=== PATIENT | female | born 1955 | race Caucasian/White ===

== ENCOUNTER 2018-04-27 01:55 | Observation (INO) | payer MEDICARE ==
[2018-04-27] MEDS ORDERED: MORPHINE SULFATE 4 MG/ML SYRINGE IVP STA (03:06)
[2018-04-27] MEDS ORDERED: ONDANSETRON 4 MG/2 ML VIAL IVP PRN (04:07)
[2018-04-27] MEDS ORDERED: NALOXONE 0.4 MG/ML 1 ML VIAL IV PRN (04:07)
[2018-04-27] MEDS ORDERED: HYDROmorphone 1 MG/ML 1 ML SYRINGE IVP PRN (04:07)
--- NOTE | 2018-04-27 04:07 | ED ---
General Adult HPI - General Chief complaint: Extremity Injury, Lower Stated complaint: LEG PAIN Time Seen by Provider: 04/27/18 02:37 Source: patient, family, RN notes reviewed Mode of arrival: wheelchair Limitations: physical limitation - History of Present Illness Initial comments: 62-year-old female presents to the emergency department for a chief complaint of bilateral lower extremity pain for the past few years. Patient states pain has been increasing in the past few weeks. Denies any recent injuries. Patient states she is now unable to walk. Patient states it is a sharp pain in both extremities but worse in the left leg. Patient says she also has low back pain. Patient has a history of fibromyalgia and osteoarthritis. Patient is currently in pain management with Dr. Sims. Patient states she has had multiple MRIs in the past of her back. She states she is aware she has nerve damage but is not exactly sure where. Patient denies any saddle anesthesia. Patient denies any bladder or bowel changes. Patient denies any history of IV drug abuse, chronic steroid use, or cancer. Patient has no other complaints at this time including shortness of breath, chest pain, abdominal pain, nausea or vomiting, headache, or visual changes. - Related Data Home Medications Medication Instructions Recorded Confirmed Cholecalciferol (Vitamin D3) 5,000 unit PO DAILY 04/27/18 04/27/18 [Vitamin D3] DULoxetine HCL [Cymbalta] 60 mg PO DAILY 04/27/18 04/27/18 Dicyclomine [Bentyl] 10 mg PO TID 04/27/18 04/27/18 HYDROcodone/APAP 10-325MG [[place] 10 - 325 mg PO TID 04/27/18 04/27/18 10-325] Mirabegron [Myrbetriq] 25 mg PO DAILY 04/27/18 04/27/18 Naproxen 500 mg PO BID 04/27/18 04/27/18 Omeprazole 20 mg PO BID 04/27/18 04/27/18 Allergies Allergy/AdvReac Type Severity Reaction Status Date / Time No Known Allergies Allergy Verified 04/27/18 02:18 Review of Systems ROS Statement: Those systems with pertinent positive or pertinent negative responses have been documented in the HPI. ROS Other: All systems not noted in ROS Statement are negative. Past Medical History Past Medical History: Fibromyalgia, Osteoarthritis (OA) Additional Past Medical History / Comment(s): chronic pain, History of Any Multi-Drug Resistant Organisms: None Reported Past Surgical History: Cholecystectomy, Orthopedic Surgery, Tubal Ligation Additional Past Surgical History / Comment(s): carpal tunnel bilat, right knee Past Psychological History: No Psychological Hx Reported Smoking Status: Never smoker Past Alcohol Use History: Occasional Past Drug Use History: None Reported General Exam Limitations: physical limitation General appearance: alert, in no apparent distress Head exam: Present: atraumatic, normocephalic, normal inspection Eye exam: Present: normal appearance. Absent: scleral icterus, conjunctival injection ENT exam: Present: normal exam, mucous membranes moist Neck exam: Present: normal inspection, full ROM. Absent: tenderness, meningismus, lymphadenopathy Respiratory exam: Present: normal lung sounds bilaterally. Absent: respiratory distress, wheezes, rales, rhonchi, stridor Cardiovascular Exam: Present: regular rate, normal rhythm, normal heart sounds. Absent: systolic murmur, diastolic murmur, rubs, gallop, clicks GI/Abdominal exam: Present: soft, normal bowel sounds. Absent: distended, tenderness (No tenderness in the abdomen), guarding, rebound, rigid Rectal exam: Present: normal inspection, normal rectal tone Extremities exam: Present: normal capillary refill (Capillary refill less than 2 seconds in lower extremities bilaterally. PT and PT pulses 2+ in lower extremities bilaterally), other (Patellar reflexes 3+ in lower extremities bilaterally. Slightly hyperreflexive. Negative clonus.). Absent: pedal edema , joint swelling Back exam: Present: tenderness (Patient does have tenderness in the lumbar spine ). Absent: full ROM (Patient unable to flex or extend the back. Patient able to stand but states she feels like her leg is going to give out and cannot take a step) Neurological exam: Present: alert, oriented X3, CN II-XII intact, other ( Sensation intact in lower extremities bilaterally.). Absent: normal gait, motor sensory deficit Psychiatric exam: Present: normal affect, normal mood Course Vital Signs 04/27/18 04/27/18 04/27/18 02:14 03:41 04:33 Temperature 98.2 F Pulse Rate 69 80 66 Respiratory 18 20 16 Rate Blood Pressure 132/79 159/75 125/64 O2 Sat by Pulse 99 99 98 Oximetry Medical Decision Making - Medical Decision Making 62-year-old female presents to the emergency department for a chief complaint of lower extremity pain times years. Pain exacerbated the past few months. Patient has had multiple MRIs in the past. She is currently being treated by Dr. Sims for pain management. Patient states unable to walk and will not take a step in the emergency department when standing because she is afraid her leg will give out. Patient states the pain is mostly in the left leg and it is a sharp pain. Patient does have sensation in lower extremities bilaterally. Patient is slightly hyperreflexic with patellar reflexes, negative clonus. Normal rectal tone. Denies saddle anesthesia or bladder or bowel changes. Discussed with patient possibility of admission for pain management which she agrees at this time. She states she cannot go home at this and at this point she is a concern for fall risk. Patient will be admitted for these reasons. Disposition Clinical Impression: Bilateral lower extremity pain, Chronic back pain Disposition: ADMITTED IP TO THIS [facility] Condition: Good Referrals: Jose Olson MD [Primary Care Provider] - 1-2 days Time of Disposition: 04:07
[2018-04-27 04:36] VITALS: RESP 16
[2018-04-27] MEDS: SODIUM CHLORIDE 0.9% 1,000 ML IV SCH ×2 (04:49→16:21)
[2018-04-27] MEDS: MORPHINE SULFATE 4 MG/ML SYRINGE IV PRN ×2 (07:19→15:32)
[2018-04-27] MEDS: NAPROXEN 250 MG TAB PO SCH ×2 (10:24→20:59)
[2018-04-27] MEDS: DULoxetine HCL 60 MG CAPSULE.DR PO SCH (10:28)
[2018-04-27] MEDS: DICYCLOMINE 10 MG CAP PO SCH ×3 (10:28→21:08)
[2018-04-27] MEDS: PANTOPRAZOLE 40 MG TABLET PO SCH ×2 (10:29→21:08)
[2018-04-27] MEDS: Mirabegron [Myrbetriq] 25 MG PO SCH (11:16)
--- NOTE | 2018-04-27 15:36 | P.CNNES ---
History of Present Illness Consult date: 04/27/18 Reason for Consult: Patient admitted with lower extremity weakness and pain. History of Present Illness: This patient is a 62-year-old right-handed white female who apparently over the last 2 weeks has been complaining of increased pain in her back as well as in both of her lower extremities. The patient states that the symptoms of weakness and pain have been progressively worsening to the point that this morning she could not walk. She was having sharp pain in both legs with more severe shooting pain into the left leg. Patient states that she follows in the pain management clinic with Dr. Sims and is undergone epidural injections every year for the last 2 years. She had her last epidural in November 2017. She states that the epidurals are not long lasting and usually short lived in their effectiveness in controlling her pain. Her new finding today has been weakness in both legs producing severe inability to stand or ambulate. She states she was also having pain when sitting on the commode today. For these reasons she did tell her she would like to come to the emergency room for evaluation. She was seen in the ER at [facility] today and was advised admission to the hospital with a consultation to pain management. Patient states that she has been using Narco and Cymbalta as primary medicines for management of her pain symptoms. She has a long-standing history of fibromyalgia dating back 20 years ago and has been tried on various other medications over the years. She is currently only on Cymbalta. The patient denies any bowel or bladder incontinence. She has no sensory loss in her lower extremities. She denies any chronic steroid use or IV drug use in the past. Patient does follow with Dr. Olson in the outpatient clinic and apparently did not seek any medical attention due to the more severe symptoms in the last 2 weeks. The patient was seen in the emergency room by physician pharmacy innovation assistant Brett Anders. She was found to have no evidence of saddle anesthesia or bowel or bladder changes. She had a normal rectal tone as per the physician pharmacy innovation assistant. No imaging studies were done but apparently the patient states her last MRI of her back was over a year ago. The patient states that she has great difficulty even standing now with assistance and has to rely on her or her walker to the standing position. Orthopedic spine surgery has been consulted and we are waiting their evaluation as well. We are recommending the patient should have an immediate urgent MRI of the lumbar spine done for further evaluation. Her neurological examination does reveal hyperreflexia in both lower extremities. There is no evidence of a sensory level. Her clinical history is suggesting acute lumbar disc disease and lumbar spinal stenosis. We have reviewed these findings today in detail with the patient. We will arrange for MRI of the lumbar spine to be done as soon as possible for further review. We will continue to follow her progress closely during this admission. Apparently she was taken off of pravastatin for 2 months to see if this was contributing to some of her leg pain. There is been no change according to the patient and her symptoms consistently remain unchanged despite having stopped the pravastatin 2 months ago. The patient is now admitted and neurology has been consulted for further evaluation and recommendations. Review of Systems Constitutional: Denies chills, Denies fever Eyes: denies blurred vision, denies pain Ears, nose, mouth and throat: Denies headache, Denies sore throat Cardiovascular: Denies chest pain, Denies shortness of breath Respiratory: Denies cough Gastrointestinal: Denies abdominal pain, Denies diarrhea, Denies nausea, Denies vomiting Genitourinary: Denies dysuria, Denies hematuria Musculoskeletal: Denies myalgias Integumentary: Denies pruritus, Denies rash Neurological: Reports gait dysfunction, Reports motor disturbance, Reports paresthesias, Reports spasticity, Reports tingling, Denies numbness, Denies weakness Psychiatric: Denies anxiety, Denies depression Endocrine: Denies fatigue, Denies weight change Past Medical History Past Medical History: Fibromyalgia, GERD/Reflux, Osteoarthritis (OA) Additional Past Medical History / Comment(s): Chronic back pain, chronic bilateral leg pain worse on L side (pt sees Dr. Sims for pain management), arthritis in back and multiple joints, overactive bladder. History of Any Multi-Drug Resistant Organisms: None Reported Past Surgical History: Cholecystectomy, Orthopedic Surgery, Tubal Ligation Additional Past Surgical History / Comment(s): carpal tunnel bilat, right knee arthroscopy, bilateral hip arthroscopy, R elbow tendon surgery, colonoscopy. Additional Past Anesthesia/Blood Transfusion Reaction / Comment(s): Pt states she woke during one of her surgeries. Smoking Status: Former smoker - Past Family History Father History Unknown: Yes Additional Family Medical History / Comment(s): Pt does not know father's health hx. Mother History Unknown: Yes Additional Family Medical History / Comment(s): Pt does not know mother's health hx. Medications and Allergies Home Medications Medication Instructions Recorded Confirmed Type Cholecalciferol (Vitamin D3) 5,000 unit PO DAILY 04/27/18 04/27/18 History [Vitamin D3] DULoxetine HCL [Cymbalta] 60 mg PO DAILY 04/27/18 04/27/18 History Dicyclomine [Bentyl] 10 mg PO TID 04/27/18 04/27/18 History HYDROcodone/APAP 10-325MG [[place] 1 tab PO TID 04/27/18 04/27/18 History 10-325] Mirabegron [Myrbetriq] 25 mg PO DAILY 04/27/18 04/27/18 History Naproxen 500 mg PO BID PRN 04/27/18 04/27/18 History Omeprazole 20 mg PO BID 04/27/18 04/27/18 History Allergies Allergy/AdvReac Type Severity Reaction Status Date / Time No Known Allergies Allergy Verified 04/27/18 08:40 Physical Examination - Vital Signs Vital Signs: Vital Signs Temp Pulse Pulse Resp BP BP Pulse Ox 04/27/18 08:30 67 16 04/27/18 07:39 98.5 F 67 16 124/70 96 04/27/18 06:59 98.9 F 69 16 120/60 04/27/18 04:33 66 16 125/64 98 04/27/18 03:41 80 20 159/75 99 04/27/18 02:14 98.2 F 69 18 132/79 99 Intake and Output 04/26/18 04/27/18 04/27/18 22:59 06:59 14:59 Other: Voiding Method Toilet Weight 92.079 kg - Constitutional General appearance: average body habitus, cooperative - EENT EENT: PERRL, mucous membranes moist - Respiratory Respiratory: lungs clear, normal breath sounds - Cardiovascular Cardiovascular: regular rate, normal S1, normal S2 Extremities: no peripheral edema bilaterally - Gastrointestinal Gastrointestinal: normoactive bowel sounds - Integumentary Integumentary: normal - Neurologic Cranial nerve examination: PERRL, EOMI, VFF, V1/V2/V3 grossly intact, face symmetric, tongue midline, intact gag reflex, intact corneal reflex, normal palatal elevation Speech examination: intact Sensorimotor examination: intact (Medical library) Motor examination - right side: 3/5: hip flexors, knee extensors, dorsiflexion, toe extension (EHL), plantarflexion, 4/5: biceps, triceps, wrist flexion, wrist extension, medical staff assistant Motor examination - left side: 3/5: hip flexors, knee extensors, dorsiflexion, toe extension (EHL), plantarflexion, 4/5: biceps, triceps, wrist flexion, wrist extension, medical staff assistant Detailed sensory examination: intact Reflex and gait examination: intact Reflexes: 1+: ankle, bicep, knee, tricep - Musculoskeletal Musculoskeletal: no pain - Psychiatric Psychiatric: mood/affect appropriate, cooperative Assessment and Plan (1) Intractable back pain Current Visit: Yes Status: Acute Code(s): M54.9 - DORSALGIA, UNSPECIFIED SNOMED Code(s): 479398814 (2) Lumbar spinal stenosis Current Visit: Yes Status: Acute Code(s): M48.061 - SPINAL STENOSIS, LUMBAR REGION WITHOUT NEUROGENIC LA SNOMED Code(s): 44672000 (3) Lumbar myelopathy Current Visit: Yes Status: Acute Code(s): G95.9 - DISEASE OF SPINAL CORD, UNSPECIFIED SNOMED Code(s): 35204075 (4) Bilateral lower extremity pain Current Visit: Yes Status: Acute Code(s): M79.604 - PAIN IN RIGHT LEG; M79.605 - PAIN IN LEFT LEG SNOMED Code(s): 25145635 (5) Chronic back pain Current Visit: Yes Status: Acute Code(s): M54.9 - DORSALGIA, UNSPECIFIED; G89.29 - OTHER CHRONIC PAIN SNOMED Code(s): 747178978 Plan: This patient is a 62-year-old right-handed white female who was admitted through the emergency room today with symptoms of severe intractable low back pain and bilateral leg weakness. According to the patient for the past 1 week she has been noticing increasing weakness in both of her legs as well as severe pain. She was unable to stand and ambulate this morning at home and was brought into the emergency room at [facility] and was evaluated in the ER by physician pharmacy innovation assistant Brett Anders. Patient was admitted to hospital for further evaluation. We are recommending a pain management consultation for this patient for further assessment of her chronic pain. We will also obtain consultation from orthopedic spine surgery and Dr. Easley regarding bilateral leg weakness. Patient requires MRI of the lumbar spine which will be ordered today as soon as possible for further assessment of possible lumbar spinal stenosis and/or lumbar myelopathy. We have discussed current findings with the patient in detail. Further recommendations will be given pending the results of her MRI of the lumbar spine. Her overall prognosis at this time remains very guarded. We will continue close neurological follow-up for this patient during this admission. Time with Patient: Greater than 30
[2018-04-27] MEDS ORDERED: DIAZEPAM 5 MG/ML 2 ML INJ IVP PRN (15:52)
[2018-04-27 16:29] LABS: Anion Gap 5 mmol/L; Blood Urea Nitrogen 11 mg/dL (7-17); Calcium 9.1 mg/dL (8.4-10.2); Carbon Dioxide 27 mmol/L (22-30); Chloride 107 mmol/L (98-107); Glucose 104 mg/dL (74-99); Potassium 4.2 mmol/L (3.5-5.1); Sodium 139 mmol/L (137-145)
[2018-04-27] MEDS ORDERED: HYDROcodone/APAP 10-325MG 1 EACH TAB PO PRN ×2 (16:43)
[2018-04-27] MEDS ORDERED: DIAZEPAM 5 MG TAB PO PRN (16:44)
--- NOTE | 2018-04-27 16:56 | P.CNOR ---
History of Present Illness - HPI Consult date: 04/27/18 Consult reason: low back pain History of present illness: The patient is a 62-year-old female who presented to the emergency department this morning with intractable lower back pain. She states that she does have a history of chronic low back pain and she is Dr. Sims and has undergone epidural injections over the last few years. She had her last epidural in December or January 2018. These injections only provided relief for a few months. Dr. Sims does manage her chronic pain with [place] 10. The patient states that she is also had her "nerve endings burnt" in her back. She denies any previous surgery to her back. She states the pain in her low back has steadily increased over the last week and a half and now she is unable to ambulate. The pain and weakness is worse in her left leg, with pain in her left hip and knee. She denies any recent fever, chills, rigors, abdominal pain, shortness of breath, chest pain. He denies any bowel or bladder changes. No new imaging was obtained in the emergency department. She did have her last MRI last year by Dr. Sims. Dr. Juan from neurology has also seen the patient and ordered an MRI of her lumbar spine that is currently scheduled. At this time, the patient states that her pain is moderately controlled and she only feels slightly better since admission. She states that she does get flareups with her low back pain similar to this in the past and her pain eventually gets better with IV pain medication. She states that she has taken steroids in the past but usually does not help her. Review of Systems Constitutional: Denies chills, Denies fatigue, Denies fever Cardiovascular: Denies chest pain, Denies shortness of breath Respiratory: Denies cough Gastrointestinal: Reports as per HPI, Denies diarrhea, Denies nausea, Denies vomiting Genitourinary: Reports as per HPI Musculoskeletal: Denies low back pain, Denies shooting leg pain Musculoskeletal: left: hip pain, knee pain Past Medical History Past Medical History: Fibromyalgia, GERD/Reflux, Osteoarthritis (OA) Additional Past Medical History / Comment(s): Chronic back pain, chronic bilateral leg pain worse on L side (pt sees Dr. Sims for pain management), arthritis in back and multiple joints, overactive bladder. History of Any Multi-Drug Resistant Organisms: None Reported Past Surgical History: Cholecystectomy, Orthopedic Surgery, Tubal Ligation Additional Past Surgical History / Comment(s): carpal tunnel bilat, right knee arthroscopy, bilateral hip arthroscopy, R elbow tendon surgery, colonoscopy. Additional Past Anesthesia/Blood Transfusion Reaction / Comm: Pt states she woke during one of her surgeries. Smoking Status: Former smoker - Past Family History Father History Unknown: Yes Additional Family Medical History / Comment(s): Pt does not know father's health hx. Mother History Unknown: Yes Additional Family Medical History / Comment(s): Pt does not know mother's health hx. Medications and Allergies Home Medications Medication Instructions Recorded Confirmed Type Cholecalciferol (Vitamin D3) 5,000 unit PO DAILY 04/27/18 04/27/18 History [Vitamin D3] DULoxetine HCL [Cymbalta] 60 mg PO DAILY 04/27/18 04/27/18 History Dicyclomine [Bentyl] 10 mg PO TID 04/27/18 04/27/18 History HYDROcodone/APAP 10-325MG [[place] 1 tab PO TID 04/27/18 04/27/18 History 10-325] Mirabegron [Myrbetriq] 25 mg PO DAILY 04/27/18 04/27/18 History Naproxen 500 mg PO BID PRN 04/27/18 04/27/18 History Omeprazole 20 mg PO BID 04/27/18 04/27/18 History Allergies Allergy/AdvReac Type Severity Reaction Status Date / Time No Known Allergies Allergy Verified 04/27/18 08:40 Physical Examination The patient is a 62-year-old female who is in no acute distress. She is alert and oriented 3. Abdomen is soft and nontender. Chest has good excursion with deep inspiration. Exam of the lumbar spine reveals mild paraspinal spasm bilaterally on palpation. She has sustained dorsiflexion and plantar flexion and EHL function on the right with weakened EHL (3/5) on the left. She has good foot and ankle motion. Bilateral calves are soft and nontender. Straight leg raise is positive bilaterally. She is able to pick her right leg off the bed without difficulty but is unable to lift her left leg. Neurological and circulatory status is intact. Results - Labs Labs: Abnormal Lab Results - Last 24 Hours (Table) 04/27/18 Range/Units 16:03 Glucose 104 H (74-99) mg/dL Result Diagrams: 04/27/18 16:03 Assessment and Plan (1) Bilateral lower extremity pain Current Visit: Yes Status: Acute Code(s): M79.604 - PAIN IN RIGHT LEG; M79.605 - PAIN IN LEFT LEG SNOMED Code(s): 86504860 (2) Chronic back pain Current Visit: Yes Status: Acute Code(s): M54.9 - DORSALGIA, UNSPECIFIED; G89.29 - OTHER CHRONIC PAIN SNOMED Code(s): 072111052 (3) Intractable back pain Current Visit: Yes Status: Acute Code(s): M54.9 - DORSALGIA, UNSPECIFIED SNOMED Code(s): 023355011 Plan: The clinical findings were discussed with the patient. The case will be discussed with Dr. Easley. No immediate surgical intervention is warranted at this time. Her [place] 10 will be reordered along with IV pain medications as needed. We will start Solu-Medrol 80 mg every 8 hours. We agree with obtaining a updated MRI due to the increased symptoms in her legs. We will await MRI and recheck the patient tomorrow and make further recommendations as needed.
--- NOTE | 2018-04-27 18:40 | MR ---
EXAMINATION TYPE: MR lumbar spine wo/w con DATE OF EXAM: 04/27/2018 COMPARISON: 10/08/2009 HISTORY: LBP, nessa leg weakness TECHNIQUE: Multiplanar, multisequence images of the lumbar spine were acquired utilizing [address] gadolinium contrast. The lumbar vertebra have normal alignment. Disc spaces are fairly normal. There is no spinal stenosis . Neural foramina are well-maintained. There is no compression fracture. There is no pathologic enhan cement. Sacroiliac joints appear intact. There is no lumbar paraspinal mass. IMPRESSION: Negative MR scan of the lumbar spine. Spine appears normal for age. No fracture. No change compared t o old exam.
[2018-04-27] MEDS: BACLOFEN 10 MG TAB PO SCH (21:04)
[2018-04-27] MEDS: HYDROcodone/APAP 7.5-325MG 1 EACH TAB PO SCH (21:06)
[2018-04-27] MEDS: methylPREDNISolone SOD SUCCI 125 MG/2 ML VIAL IV SCH (21:06)
[2018-04-27] MEDS: ENOXAPARIN 40 MG/0.4 ML SYRINGE SQ SCH (21:06)
--- NOTE | 2018-04-27 21:44 | HP ---
HISTORY AND PHYSICAL DATE OF ADMISSION: 04/27/2018 DATE OF SERVICE: 04/27/2018 PRESENTING COMPLAINT: Lower back pain. HISTORY OF PRESENTING COMPLAINT: This 62-year-old patient of Dr. Olson. Chronic stable medical conditions include fibromyalgia, GERD, overactive bladder. The patient has had chronic low back pain and is followed with Dr. Sims. Patient has received steroid injections. The patient does not know if there is a specific diagnosis. The last few days the patient has been having increased pain in the legs from both the thighs down to the knees and finding it more difficult to walk. No trouble with the bowels. Last bowel movement was yesterday and no trouble with the urine. She presented to the ER the ER denies any recent falls. No fever. No chills. The patient's was present with her. Pain is lower back like stated going down to both the legs from the knees. Current pain medications not helping her she states. REVIEW OF SYSTEMS: CONSTITUTIONAL: None. HEENT none. RESPIRATORY none. CARDIOVASCULAR none. GASTROINTESTINAL none. GENITOURINARY: Overactive bladder. DERMATOLOGICAL none. HEMATOLOGIC and none. LYMPHATIC: None. PSYCHIATRY none. NEUROLOGICAL as above. MUSCULOSKELETAL as above. PAST MEDICAL HISTORY: Fibromyalgia, GERD, osteoarthritis, chronic low back pain, chronic . PAST SURGICAL HISTORY: Cholecystectomy, tubal ligation, carpal tunnel, bilateral; right knee arthroscopy, bilateral hip arthroscopy, right elbow tendon surgery. SOCIAL HISTORY: Lives with her . The patient has smoked for 20 years stopped in 1997. Alcohol occasionally. FAMILY HISTORY: Reviewed, noncontributory to presentation. HOME MEDICATIONS: 1. Omeprazole 20 mg b.i.d. 2. Naproxen 500 mg b.i.d. p.r.n. 3. Myrbetriq 25 mg p.o. daily. 4. [place] 10 1 tablet p.o. t.i.d. 5. Bentyl 10 mg p.o. t.i.d. 6. Cymbalta 60 mg p.o. daily. 7. Vitamin D3 5000 units p.o. daily. ALLERGIES: CHEESE. EXAMINATION: VITAL SIGNS: Temperature 98.9 pulse 69, respirations 16, blood pressure 120/60, pulse ox 96% on room air. GENERAL APPEARANCE: Well built BMI 33.8. Lying in bed, not in distress. EYES : Pupils equal. Conjunctivae normal. HEENT: External appearance of nose and ears normal. Oral cavity normal. NECK: JVD not raised. Mass not palpable. RESPIRATORY: Effort normal. LUNGS: Fair entry. CARDIOVASCULAR: 1st and 2nd sounds normal. No edema. ABDOMEN: Soft, nontender. Liver and spleen not palpable. LYMPHATICS: No lymph nodes palpable in the neck and axillae. PSYCHIATRY: Alert and oriented x3. Mood and affect is normal. NEUROLOGICAL: Pupils equal. Cranial nerves grossly intact. The patient just about able to raise the legs off the bed. Reflexes are equivocal. Sensation grossly preserved. INVESTIGATIONS: Potassium 4.2, BUN and creatinine is normal. Lumbar spine MRI done late afternoon was negative. ASSESSMENT: 1. Acute on chronic low back pain in the lumbar area now which is always radiating to the legs now worsening. Patient having some trouble walking. The patient did have a bowel movement yesterday. No trouble with the urine. 2. Obesity BMI 33.8. 3. Chronic fibromyalgia. 4. Gastroesophageal reflux disease. 5. Chronic overactive bladder. PLAN: Consultation was made to Dr. Easley, who did order the MRI as above. The patient is on IV Solu-Medrol. We will change the Valium and use baclofen around the clock for antispasmodic and also use naproxen for anti-inflammatory effect. Also get a heating pad and await further input from Dr. Easley. A PT/OT also has been consulted. Copy to Dr. Olson. Care was discussed with the patient and in detail. Questions were answered. MMODL / IJN: [id number] /
[2018-04-28] MEDS: HYDROcodone/APAP 7.5-325MG 1 EACH TAB PO SCH ×2 (03:27→10:10)
[2018-04-28] MEDS: methylPREDNISolone SOD SUCCI 125 MG/2 ML VIAL IV SCH ×3 (03:34→13:11)
[2018-04-28] MEDS: SODIUM CHLORIDE 0.9% 1,000 ML IV SCH (05:18)
[2018-04-28 06:02] VITALS: BP 100/58; PULSE 62; TEMP 97.6
--- NOTE | 2018-04-28 08:51 | P.PN ---
Progress Note - Text Progress Note Date: 04/28/18 Recent is a very pleasant 62-year-old female who is seen and examined at bedside for follow-up evaluation regards to her intractable low back pain, lower extremity radiculopathy, and difficulty with ambulation. Patient has a history of chronic low back pain. She was seen and examined yesterday. She is a patient of Dr. Barlow. She was seen and examined yesterday by Dr. Juan in neurology who ordered an MRI of the lumbar spine. This was performed yesterday. Patient was also started on steroid yesterday. Since that time, she has had significant improvement of her symptoms. She is able to ambulate to the restroom without difficulty. Her back pain is better controlled. She continues to feel tightness in her left anterior thigh but states her other lower extremity pain has resolved. She states when her pain is severe she has a burning sensation radiating across the lumbar spine and then pains to just go down the bilateral lower extremities without specific pattern. She denies any lower extremity weakness bilaterally. She feels significantly better as compared yesterday. She feels she is ready for discharge home. Physical exam: Patient is awake, alert, and oriented 3 Vital signs stable Good chest excursion with deep inspiration and expiration Examination of lumbar spine reveals skin is intact with no abrasions, lacerations, or bruises; no erythema, purulence or signs of infection Some pain on palpation over the bilateral sacroiliac joints greater on the left than the right Dorsiflexion, plantarflexion, and extensor hallucis longus positive sustained bilaterally Lower extremity strength 5/5 bilaterally Patellar reflex 2+ bilaterally and Achilles reflexes 2+ bilaterally No lower extremity hyperreflexia bilaterally Straight leg test negative bilateral lower extremities Negative Lasegue's test bilaterally No signs or symptoms of DVT; no calf pain No pain with internal and external rotation of the hips bilaterally Neurovascularly intact MRI of the lumbar spine taken on 04/27/2018: Essential negative scan of the lumbar spine; imaging appears normal for age; no significant changes compared to previous study; no evidence of abnormal enhancement; no evidence of central canal stenosis or neural foraminal stenosis; no evidence of herniated nucleus pulposus some on the evidence of fracture Assessment: Intractable low back pain Acute on chronic low back pain Bilateral lower extremity radiculopathy Difficulty with ambulation Plan: 1. Patient is seen and examined at bedside again today. After reviewing of imaging as well as physical examination, we will plan to continue conservative treatment. There are no significant findings on her lumbar MRI that would indicate that surgical intervention will provide any significant improvement of her symptoms. We would not plan for acute surgical intervention or any surgical intervention outpatient setting based on her current imaging results. We discussed she may continue to participate in activities at tolerance. She may continue to follow with Dr. Barlow in the outpatient setting for pain control medications and other treatment modalities. At this time, she may follow-up on an as-needed basis. She is clear for discharge from orthopedic spine standpoint. Not planning to discharge the patient on medications. Medications may be prescribed by medicine or neurology as needed. 2. Patient will continue followed by medicine and neurology 3. Patient has been discussed with Dr. Navid Easley and he agrees with this plan
[2018-04-28] MEDS: BACLOFEN 10 MG TAB PO SCH ×2 (09:25→13:11)
[2018-04-28] MEDS: DULoxetine HCL 60 MG CAPSULE.DR PO SCH (09:26)
[2018-04-28] MEDS: DICYCLOMINE 10 MG CAP PO SCH (09:26)
[2018-04-28] MEDS: ENOXAPARIN 40 MG/0.4 ML SYRINGE SQ SCH (09:26)
[2018-04-28] MEDS: Mirabegron [Myrbetriq] 25 MG PO SCH (09:27)
[2018-04-28] MEDS: NAPROXEN 250 MG TAB PO SCH (09:27)
[2018-04-28] MEDS: PANTOPRAZOLE 40 MG TABLET PO SCH (09:27)
--- NOTE | 2018-04-28 15:06 | DS ---
DISCHARGE SUMMARY DATE OF ADMISSION: 04/27/2018 DATE OF DISCHARGE: 04/28/2018 FINAL DIAGNOSES: 1. Acute on chronic low back pain in the lumbar area, probably with osteoarthritis with secondary radiculopathy resulting in gait dysfunction. 2. Obesity with a body mass index of 33.8. 3. Chronic fibromyalgia. 4. Gastroesophageal reflux disease. 5. Chronic overactive bladder. HOSPITAL COURSE: This is a patient who follows with Dr. Olson. She has chronic low back pain, follows with Dr. Sims and receives steroid injections. For the last few days she had been having increasing pain in the lower leg, finding difficulty to walk. The patient was put on [id number] NSAIDs, baclofen and steroids. Doing much better. Able to walk about 50-100 feet. I had a long talk with the patient and her . She is keen to go home right now. She is doing much better. The patient's MRI of the back came back nonspecific. The patient was seen by Dr. Easley from Orthopedic Spine and also Dr. Onelia Juan from Neurology. The patient will follow up with Dr. Sims as an outpatient. On examination, patient can lift her legs far more comfortably off the bed and was able to walk. Lungs are clear. CARDIOVASCULAR: First and second sounds normal. Blood pressure 100/58, pulse rate of 62. DISCHARGE MEDICATIONS: 1. Vitamin D3 5000 units p.o. daily. 2. Cymbalta 60 mg p.o. daily. 3. Bentyl 10 mg p.o. t.i.d. 4. [place] 10 one tablet p.o. t.i.d. 5. Myrbetriq take 25 mg a day. 6. Omeprazole 20 mg b.i.d. 7. Baclofen 5 mg p.o. q.i.d. 8. Naproxen 500 mg p.o. b.i.d.; 30 tablets. 9. Prednisone taper. Follow up with Dr. Olson on 05/02/2018. Follow up with Dr. Sims in 2 weeks. Follow up with Dr. Easley in weeks. Discussion and discharge planning more than 35 minutes. MMODL / IJN: [id number] /
== END 2018-04-28 13:55 | disposition home or self-care (01) ==
LOC: EC 01:55 → 5MS5E 05:59
PROVIDERS: ADMIT Hospitalist; ATTEND Hospitalist
DX: G89.29 Other chronic pain (principal); M54.5 Low back pain; M79.604 Pain in right leg; M79.605 Pain in left leg; R53.1 Weakness; M47.26 Other spondylosis with radiculopathy, lumbar region; R29.2 Abnormal reflex; Z68.33 Body mass index [BMI] 33.0-33.9, adult; E66.9 Obesity, unspecified; M79.7 Fibromyalgia; M48.061 Spinal stenosis, lumbar region without neurogenic claudication; G95.9 Disease of spinal cord, unspecified; K21.9 Gastro-esophageal reflux disease without esophagitis; N32.81 Overactive bladder; Z79.899 Other long term (current) drug therapy; Z79.891 Long term (current) use of opiate analgesic; Z79.1 Long term (current) use of non-steroidal anti-inflammatories (NSAID); Z90.49 Acquired absence of other specified parts of digestive tract; Z87.891 Personal history of nicotine dependence
CPT/HCPCS: 99284; 96374 ×2; 96361 ×3; 96376 ×2; 96372; 96375; 97161; 97166; 80048; 72158; G0378 ×2; J2270; J2930 ×2; J3360; J1650; J1170; A9581

== ENCOUNTER → 2018-10-23 | Outpatient (CLI) | payer MEDICARE | END | disposition home or self-care (01) | LOC: LABWHC1 13:05 | PROVIDERS: ATTEND Nurse Practitioner Acute Care | DX: I49.9 Cardiac arrhythmia, unspecified (principal) | CPT/HCPCS: 36415; 93005 ==